=== PATIENT | female | born 1970 | race Caucasian/White ===

== ENCOUNTER → 2017-01-20 | Outpatient (CLI) | payer OTHER ==
[~2017-01-20] MED LIST: ACETAMINOPHEN; CIPRO PO; FAMOTIDINE PO; FLEXERIL10 MG PO; LORTAB 5/500 TA1 TA1 PO; NO MEDICATIONS; PHENERGAN25 MG PO; TOPAMAX PO; ULTRAM PO; VICODIN 5/1 TAB 5/50 PO; VOLTAREN50 MG PO
--- NOTE | ~2017-01-20 | CR142 ---
[facility]. [facility] A Service of [facility] & [facility] RADIOLOGY TEXT RESULTS PATIENT: NJ ESCALERA LOCATION: [facility] : 70 UNIT #: [id number] AGE: [address]: JULIANE BYNUM APRN SEX: F ORDER DR: [id number] [place] [id number] O MR#: [id number] Acc #: [id number] NAME: NJ ESCALERA : 1970 SEX: F STUDY DATE/TIME: 01/20/2017 11:15 UNIT: SRAD ROOM: STUDY DESCRIPTION: CR Hand Min 3 Views Rt Attending Physician: Juliane Bynum Aprn Referring Physician: Juliane Bynum Aprn Ordering Physician: Juliane Bynum Aprn Primary Care Physician: Juliane Bynum Aprn MEDICAL IMAGING REPORT This report is preliminary unless electronic signature is present. EXAM Right hand 3 views 01/20/2017 HISTORY Right hand pain with tingling sensation and right hand for 5 years worsening in the last several months. Repetitive motion injury. FINDINGS AP, lateral, and oblique projections of the hand show good mineralization with normal carpal, metacarpal, and phalangeal anatomy without indication of fracture, dislocation, or soft tissue radiopaque foreign body. IMPRESSION Normal hand. Dictated by... Bebeto Eduardo M.D. THIS IS AN ELECTRONICALLY VERIFIED REPORT Bebeto Eduardo M.D. at 01/21/2017 8:31 AM KRT/to TD: 01/20/2017 18:01 JOB #: [id number] MEDICAL IMAGING REPORT Page 1 of 1
--- NOTE | ~2017-01-20 | CR141 ---
[facility] A Service of [facility] & [facility] RADIOLOGY TEXT RESULTS PATIENT: NJ ESCALERA LOCATION: [facility] : 70 UNIT #: [id number] AGE: [address]: JULIANE BYNUM APRN SEX: F ORDER DR: [id number] [address] [id number] O MR#: [id number] Acc #: [id number] NAME: NJ ESCALERA : 1970 SEX: F STUDY DATE/TIME: 01/20/2017 11:15 UNIT: SRAD ROOM: STUDY DESCRIPTION: CR Hand Min 3 Views Lt Attending Physician: Juliane Bynum Aprn Referring Physician: Juliane Bynum Aprn Ordering Physician: Juliane Bynum Aprn Primary Care Physician: Juliane Bynum Aprn MEDICAL IMAGING REPORT This report is preliminary unless electronic signature is present. EXAM Left hand 3 views 01/20/2017 HISTORY Left hand pain with tingling sensation in left hand for 5 years worsening in the last few months. Repetitive motion injury. FINDINGS AP, lateral, and oblique projections of the hand show good mineralization with normal carpal, metacarpal, and phalangeal anatomy without indication of fracture, dislocation, or soft tissue radiopaque foreign body. IMPRESSION Normal hand. Dictated by... Bebeto Eduardo M.D. THIS IS AN ELECTRONICALLY VERIFIED REPORT Bebeto Eduardo M.D. at 01/21/2017 8:31 AM JOSH/juan j TD: 01/20/2017 18:05 JOB #: [id number] MEDICAL IMAGING REPORT Page 1 of 1
== END | disposition home or self-care (01) ==
LOC: SRAD 11:10
DX: M79.642 Pain in left hand (principal); M79.641 Pain in right hand
CPT/HCPCS: 73130